=== PATIENT | male | born 1960 | race Caucasian/White ===

== ENCOUNTER → 2021-09-29 16:40 | Outpatient (CLI) | payer OTHER, SELFPAY ==
--- NOTE | ~2021-09-29 | XR_ITS ---
EXAMINATION: XR hand BI arthritis min 3V DATE: 09/29/2021 17:03 INDICATION: Bilateral hand pain TECHNIQUE: Posteroanterior, lateral, and oblique views of the left and of the right hands as well as a ballcatchers view of both hands were obtained. COMPARISON: 06/12/2018 FINDINGS: There is advanced osteoarthritis of the bilateral first carpometacarpal joints. There is mild osteoar thritis in multiple interphalangeal joints and at the right second and third metacarpophalangeal join ts. No abnormal erosions are identified. The soft tissues are unremarkable. There is no fracture. IMPRESSION: 1. Advanced osteoarthritis of the bilateral first carpometacarpal joints. Reviewed, dictated and finalized at location B.
== END ==
PROVIDERS: PCP Physician Assistant; Visit Provider Physician Assistant
DX: M18.0 Bilateral primary osteoarthritis of first carpometacarpal joints (principal); M19.042 Primary osteoarthritis, left hand; M19.041 Primary osteoarthritis, right hand
CPT/HCPCS: 73130

== ENCOUNTER 2022-01-30 10:41 | Emergency (ER) | payer OTHER, SELFPAY ==
--- NOTE | ~2022-01-30 | XR_ITS ---
EXAMINATION: XR ankle RT 2V DATE: 01/30/2022 12:05 INDICATION: Laceration at the medial right ankle TECHNIQUE: Anteroposterior and lateral views of the right ankle were obtained. COMPARISON: 09/21/06 FINDINGS: Soft tissue swelling with overlying bandaging material along the medial aspect of the right ankle and distal lower leg. No radiopaque foreign bodies identified. Bone alignment is normal. No fracture. Lorena int spaces are normal. No right ankle joint effusion. IMPRESSION: 1. No acute osseous abnormality or radiopaque foreign bodies. Reviewed, dictated and finalized at location A.
[2022-01-30 10:43] VITALS: BP 146/85; PULSE 62; RESP 18; TEMP 36.6; O2SAT 99
--- NOTE | 2022-01-30 12:15 | ED.WOUNDLAC ---
HPI - Wound/Laceration General Chief Complaint: Wound/Laceration Stated Complaint: right ankle laceration - work related Time Seen by Provider: 01/30/22 11:12 History of Present Illness HPI narrative: 62-year-old male presents the emergency room for evaluation of right ankle injury that occurred at work. Patient states a 500 pound steel cart slammed into his ankle causing a laceration. Patient states his tetanus is up-to-date. Patient is ambulatory on arrival. Related Data Allergies Allergy/AdvReac Type Severity Reaction Status Date / Time Influenza Virus Vaccines Allergy Unknown cough Verified 09/29/21 16:02 Review of Systems Review of Systems: CONSTITUTIONAL: Denies fever, chills, or sweats. EYES: Denies visual changes, redness, or discharge. ENT: Denies rhinorrhea, congestion, sore throat, or otalgia. CARDIOVASCULAR: Denies chest pain, palpitations, or edema. RESPIRATORY: Denies cough or dyspnea. GASTROINTESTINAL: Denies abdominal pain, nausea, vomiting, or diarrhea. GENITOURINARY: Denies dysuria or hematuria. SKIN: Reports right ankle laceration MUSCULOSKELETAL: Reports right ankle pain NEUROLOGIC: Denies headache, numbness, dizziness, or weakness. PSYCHIATRIC: Denies anxiety or depression. PMFSH Family History Family History Father Diabetes mellitus Family history of cardiovascular disease Family history of malignant neoplasm Mother Family history of malignant neoplasm Other Carcinoma of colon Family history of elevated blood lipids Social History Social History Alcohol intake: never Exam Narrative: GENERAL: Well-appearing, well-nourished, no physical limitations, and in no acute distress. HEAD: Normocephalic, atraumatic. EYES: Conjunctivae normal, PERRLA and EOMI. CHEST: Clear to auscultation. No respiratory distress. No wheezes rales or rhonchi. No tenderness. HEART: Regular rate and rhythm. No murmur heard. Normal peripheral pulses. BACK: No CVA tenderness EXTREMITIES: right ankle: Tenderness to the medial malleolus SKIN: 5 cm curved laceration medial side of the distal right lower extremity NEURO: No focal deficits. Alert and oriented x3. MAEW. CN's II-XI intact bilaterally, normal gait PSYCH: Cooperative. Normal mood and affect. Course Vital Signs Vital signs: Vital Signs Temperature 36.6 C 01/30/22 10:43 Pulse Rate 62 01/30/22 10:43 Respiratory Rate 18 01/30/22 10:43 Blood Pressure 146/85 H 01/30/22 10:43 Pulse Oximetry 99 01/30/22 10:43 Oxygen Delivery Room Air 01/30/22 10:43 Temperature 36.6 C 01/30/22 10:43 Pulse Rate 63 01/30/22 13:24 Respiratory Rate 20 01/30/22 13:24 Blood Pressure 134/93 H 01/30/22 13:24 Pulse Oximetry 99 01/30/22 13:24 Oxygen Delivery Room Air 01/30/22 10:43 Discharge Plan Discharge Clinical Impression: Laceration of ankle, right, Contusion of leg, right Patient Disposition: Home, Self-Care Condition: Stable Instructions: Antibiotic Form, Care For Your Stitches (ED), Laceration (ED) Additional Instructions: Keep your wound clean and dry. Stitches come out in 10 days. Monitor for signs of infection which include redness, swelling, increased pain and streaking. Prescriptions: New cephalexin 500 mg tablet 500 mg PO Q12H 7 Days Qty: 14 0RF No Action atorvastatin 10 mg tablet 10 mg PO DAILY Qty: 90 3RF irbesartan-hydrochlorothiazide 150-12.5 mg tablet See Rx Instructions .ROUTE .COMPLEX Qty: 90 3RF Dose Instruction: TAKE 1 TABLET BY MOUTH EVERY DAY Rx Instructions: TAKE 1 TABLET BY MOUTH EVERY DAY omeprazole 40 mg capsule,delayed release(DR/EC) See Rx Instructions .ROUTE .COMPLEX Qty: 90 3RF Dose Instruction: TAKE 1 CAPSULE BY MOUTH EVERY DAY Rx Instructions: TAKE 1 CAPSULE BY MOUTH EVERY DAY eszopiclone 2 mg tablet 2 mg PO QHS
--- NOTE | 2022-01-30 12:38 | PC.NURSE ---
Provider at bedside for laceration repair
[2022-01-30 13:24] VITALS: BP 134/93; PULSE 63; RESP 20; O2SAT 99
== END 2022-01-30 13:29 | disposition home or self-care (01) ==
PROVIDERS: Emergency Provider Nurse Practitioner Family; PCP Physician Assistant
DX: S91.011A Laceration without foreign body, right ankle, initial encounter (principal); S80.11XA Contusion of right lower leg, initial encounter; W20.8XXA Other cause of strike by thrown, projected or falling object, initial encounter
CPT/HCPCS: 73600; 96372; 99283

== ENCOUNTER 2022-04-07 00:31 | Day surgery (SDC) | payer OTHER, SELFPAY ==
[2022-03-30 10:19] VITALS: BMI 27.3
[2022-04-07 08:59] VITALS: BP 137/77; PULSE 67; RESP 20; TEMP 35.9; O2SAT 99; BMI 26.9
[2022-04-07] MEDS: LACTATED RINGERS 1,000 ML 150 ML IV CONT (09:11)
--- NOTE | 2022-04-07 09:20 | WPDANESEPPF ---
Anes - Initial Pre Proc Eval Procedure: Operation Date: 04/07/22 10:00 Proposed Procedures p Screening Colonoscopy - Ac Chavez MD Date/Time: 04/07/22 09:20 Surgeon: Ac Chavez MD Pre Op Diagnosis: neoplasm screening, family hx of colon cancer Patient Data Age: 62 Gender: M Height: 1.8 m Weight: 87.8 kg Last Vital Signs Temp 96.7 F L 04/07/22 08:59 Pulse 67 04/07/22 08:59 Resp 20 04/07/22 08:59 BP 137/77 04/07/22 08:59 Pulse Ox 99 04/07/22 08:59 O2 Del Method Room Air 04/07/22 08:59 Allergies Allergy/AdvReac Type Severity Reaction Status Date / Time Influenza Virus Vaccines Allergy Unknown cough Verified 04/04/22 16:50 Home Medications Medication Instructions Recorded Confirmed Type omeprazole 40 mg capsule,delayed See Rx Instructions .Route 06/13/21 03/30/22 Rx release .COMPLEX #90 caps eszopiclone 2 mg tablet 2 mg PO QHS PRN insomnia #90 tabs 01/10/22 03/30/22 Rx atorvastatin 10 mg tablet 10 mg PO DAILY #90 tabs 02/09/22 03/30/22 Rx irbesartan 150 See Rx Instructions .Route 03/13/22 03/30/22 Rx mg-hydrochlorothiazide 12.5 mg .COMPLEX #90 tabs tablet Patient hx anesthesia problems: none Family hx anesthesia problems: none Results Review: All pre-operative results and documents have been reviewed as part of the pre-operative evaluation. [facility] Family History Family History Father Diabetes mellitus Family history of cardiovascular disease Family history of malignant neoplasm Mother Family history of malignant neoplasm Other Carcinoma of colon Family history of elevated blood lipids Social History Social History Smoking status: Never smoker Alcohol intake: never Substance use: never Substance use type: does not use Has the Lack of Transportation Kept You From Medical Appointments or From Getting Medications?: No Within the Past 12 Months, Were You Worried Whether Your Food Would Run Out Before You Got Money to Buy More?: Never True What is Your Housing Situation Today?: I Have Housing Are You Worried That in the Next 2 Months, You May Not Have Your Own Housing to Live In?: No Do You Have Trouble Paying Your Heating Or Electricity Bill?: No Do You Have Trouble Paying For Medicines?: No Are You Currently Unemployed and Looking for Work?: No Highest Level of Education Completed: Trade/Vocational Certificate Do You Have Trouble With Childcare or the Care of a Family Member?: No Living arrangements: with family Spiritual care concerns: No Anes - Eval Final PreProcedure Day of Procedure 04/07/22 09:20 Patient weight: normal Heart: regular rate and rhythm Lungs: clear to auscultation Airway: Mallampati scale class II Neurological: alert and oriented Last oral intake: >/= 8 hours ASA classification: II Emergent: no Anesthetic plan: proceed Anesthesia type and monitoring: general GIVS and standard monitoring Results Review: All pre-operative results and documents have been reviewed as part of the pre-operative evaluation. Informed Consent: The patient's anesthetic plan and its attendant risks and benefits were discussed with the patient/family/POA. Questions were solicited and answers provided to the satisfaction of the patient/family/POA.
--- NOTE | 2022-04-07 09:22 | PM.HPGS ---
History of Present Illness History of Present Illness Consent: Risks, benefits, and alternatives have been discussed and questions answered. Patient agrees to proceed with procedure. Chief complaint: neoplasm screening, family hx of colon cancer Narrative: Xander Rodríguez is a 62 year old male Presents for screening colonoscopy. Patient's father had colon cancer. Patient reports that his current weight appetite and bowel movements are normal. Patient denies abdominal pain. He has had no bleeding. His last colonoscopy 2016 was unremarkable. Review of Systems Review of Systems: Review of systems noncontributory. [facility] Family History Family History Father Diabetes mellitus Family history of cardiovascular disease Family history of malignant neoplasm Mother Family history of malignant neoplasm Other Carcinoma of colon Family history of elevated blood lipids Social History Social History Smoking status: Never smoker Alcohol intake: never Substance use: never Substance use type: does not use Has the Lack of Transportation Kept You From Medical Appointments or From Getting Medications?: No Within the Past 12 Months, Were You Worried Whether Your Food Would Run Out Before You Got Money to Buy More?: Never True What is Your Housing Situation Today?: I Have Housing Are You Worried That in the Next 2 Months, You May Not Have Your Own Housing to Live In?: No Do You Have Trouble Paying Your Heating Or Electricity Bill?: No Do You Have Trouble Paying For Medicines?: No Are You Currently Unemployed and Looking for Work?: No Highest Level of Education Completed: Trade/Vocational Certificate Do You Have Trouble With Childcare or the Care of a Family Member?: No Living arrangements: with family Spiritual care concerns: No Meds Home Medications and Allergies Home Medications Medication Instructions Recorded Confirmed Type omeprazole 40 mg capsule,delayed See Rx Instructions .Route 06/13/21 03/30/22 Rx release .COMPLEX #90 caps eszopiclone 2 mg tablet 2 mg PO QHS PRN insomnia #90 tabs 01/10/22 03/30/22 Rx atorvastatin 10 mg tablet 10 mg PO DAILY #90 tabs 02/09/22 03/30/22 Rx irbesartan 150 See Rx Instructions .Route 03/13/22 03/30/22 Rx mg-hydrochlorothiazide 12.5 mg .COMPLEX #90 tabs tablet Allergies Allergy/AdvReac Type Severity Reaction Status Date / Time Influenza Virus Vaccines Allergy Unknown cough Verified 04/04/22 16:50 Vital Signs Vital Signs - 24 hr 04/07/22 08:59 Temperature 96.7 F L Pulse Rate 67 Respiratory Rate 20 Blood Pressure 137/77 Pulse Oximetry 99 Oxygen Delivery Room Air Exam Narrative: Physical exam reveals patient to be alert. Vital signs stable. HEENT exam is unremarkable. Patient is anicteric. Lungs are clear to auscultation and percussion. Heart is without murmur or extra sounds. Abdomen bowel sounds present soft nontender with no organomegaly. Digital external rectal exam is normal. Assessment and Plan Assessment and plan (1) Family history of colon cancer: Code(s): Z80.0 - Family history of malignant neoplasm of digestive organs Status: Acute Assessment and Plan: Patient's father had colon cancer. Plan of for surveillance colonoscopy at 5 year intervals. Further recommendations will be given after endoscopy.
[2022-04-07 10:09] VITALS: BP 115/68; PULSE 56; RESP 13; O2SAT 97
[2022-04-07 10:19] VITALS: BP 118/70; PULSE 59; RESP 14; O2SAT 96
[2022-04-07 10:29] VITALS: BP 134/79; PULSE 58; RESP 19; O2SAT 96
== END 2022-04-07 10:42 | disposition home or self-care (01) ==
PROVIDERS: PCP Family Medicine; Visit Provider Internal Medicine Gastroenterology
PROC: 0DJD8ZZ Inspection of Lower Intestinal Tract, Via Natural or Artificial Opening Endoscopic (ICD-10-PCS; CPT 45378; principal; 2022-04-07 10:00)
DX: Z12.11 Encounter for screening for malignant neoplasm of colon (principal); K57.30 Diverticulosis of large intestine without perforation or abscess without bleeding; K64.8 Other hemorrhoids; Z80.0 Family history of malignant neoplasm of digestive organs
CPT/HCPCS: 45378; J2704; J7120

== ENCOUNTER 2024-10-10 11:17 | Outpatient (CLI) | payer OTHER, SELFPAY ==
--- NOTE | ~2024-10-10 | US_ITS ---
Abdominal Sonogram: Real-time sonographic imaging of the abdomen was performed. Clinical History: Abnormal liver enzymes Findings: The liver appears normal with no evidence of mass lesion or bile duct dilatation. Main por alejandro vein demonstrates normal direction of flow. The spleen is normal in size without evidence of foca l lesion. The gallbladder is well distended, and appears normal with no evidence of gallstone or wal l thickening. The common bile duct measures 3 mm. The visualized pancreas, aorta, and IVC are unrema rkable. The right kidney measures 9.7 cm in length and the left kidney measures 12.0 cm. There is n o hydronephrosis or renal calculus. Impression: Unremarkable abdominal ultrasound. Reviewed, dictated and finalized at location . Impression: Unremarkable abdominal ultrasound.
== END 2024-10-10 11:18 | disposition home or self-care (01) ==
LOC: MICIMG 11:19
PROVIDERS: PCP Physician Assistant; Visit Provider Physician Assistant
DX: R17 Unspecified jaundice (principal)
CPT/HCPCS: 76700